=== PATIENT | male | born 1975 | race Caucasian/White ===

== ENCOUNTER 2025-07-04 07:40 | Day surgery (SDC) | payer OTHER ==
[~2025-07-04 07:40] MED LIST: Sodium Chloride 0.9% 10 ML Syringe FLUSH PRN; Sodium Chloride 0.9% 10 ML Syringe FLUSH SCH
[2025-07-04] MEDS: Lactated Ringers 1,000 ML IV SCH (08:05)
[2025-07-04] MEDS ORDERED: propofoL 500 MG/50 ML 50 ML ONE (09:16)
== END 2025-07-04 10:27 | disposition home or self-care (01) ==
LOC: JD.SDS 07:40
PROVIDERS: ATTEND Surgery
DX: Z12.11 Encounter for screening for malignant neoplasm of colon (principal); G47.33 Obstructive sleep apnea (adult) (pediatric); Z87.891 Personal history of nicotine dependence
CPT/HCPCS: 00812; J2704; J7120